=== PATIENT | male | born 1940 | race Caucasian/White ===

== ENCOUNTER 2018-02-22 10:16 | Emergency (ER) | payer MEDICARE ==
[2018-02-22] MEDS ORDERED: oxyCODONE-APAP 5-325MG 1 EACH TAB PO STA (10:54)
--- NOTE | 2018-02-22 11:45 | ED ---
General Adult HPI - General Chief complaint: Extremity Injury, Lower Stated complaint: Left Leg Pain Time Seen by Provider: 02/22/18 10:45 Source: patient, RN notes reviewed, old records reviewed Mode of arrival: wheelchair Limitations: no limitations - History of Present Illness Initial comments: This is a 77 male to the ER for evaluation today. Today this male is presenting in regards to evaluation of left leg pain left thigh pain left hip pain. Patient had a fall about 5 days ago now. Patient was seen in a different hospital for x-rays which were at the time negative. Patient states pain is steadily increased since fall bruising is to increased swelling so increased on his left hip and left thigh. Patient's ability to walk is severely diminished. He is taking Tylenol for pain which is not significantly helping at this time, he denies any neurological complaint no weakness or decreased sensation of left leg no loss of bowel or bladder - Related Data Allergies Allergy/AdvReac Type Severity Reaction Status Date / Time No Known Allergies Allergy Verified 02/22/18 10:24 Review of Systems ROS Statement: Those systems with pertinent positive or pertinent negative responses have been documented in the HPI. ROS Other: All systems not noted in ROS Statement are negative. Past Medical History Past Medical History: Deep Vein Thrombosis (DVT), Hypertension, Pulmonary Embolus (PE) Additional Past Medical History / Comment(s): AAA History of Any Multi-Drug Resistant Organisms: None Reported Additional Past Surgical History / Comment(s): kidney sx, AAA repair Past Psychological History: No Psychological Hx Reported Smoking Status: Former smoker Past Alcohol Use History: Daily Past Drug Use History: None Reported General Exam - General Exam Comments Initial Comments: Left leg shows significant bruising ecchymosis and hematoma to left thigh over the greater trochanter Limitations: no limitations General appearance: alert, in no apparent distress Head exam: Present: atraumatic, normocephalic, normal inspection Eye exam: Present: normal appearance, PERRL, EOMI. Absent: scleral icterus, conjunctival injection, periorbital swelling ENT exam: Present: normal exam, mucous membranes moist Neck exam: Present: normal inspection. Absent: tenderness, meningismus, lymphadenopathy Respiratory exam: Present: normal lung sounds bilaterally. Absent: respiratory distress, wheezes, rales, rhonchi, stridor Cardiovascular Exam: Present: regular rate, normal rhythm, normal heart sounds. Absent: systolic murmur, diastolic murmur, rubs, gallop, clicks GI/Abdominal exam: Present: soft, normal bowel sounds. Absent: distended, tenderness, guarding, rebound, rigid Extremities exam: Present: normal inspection, full ROM, normal capillary refill. Absent: tenderness, pedal edema, joint swelling, calf tenderness Back exam: Present: normal inspection Neurological exam: Present: alert, oriented X3, CN II-XII intact Psychiatric exam: Present: normal affect, normal mood Skin exam: Present: warm, dry, intact, normal color. Absent: rash Course Vital Signs 02/22/18 10:19 Temperature 97.9 F Pulse Rate 86 Respiratory 18 Rate Blood Pressure 128/100 O2 Sat by Pulse 99 Oximetry - Reevaluation(s) Reevaluation #1: 02/22/18 11:45 Patient is able to have adequate pain control currently, able to walk with cane Medical Decision Making - Medical Decision Making 77 male the ER with continued left hip pain, continues with left hip pain currently but patient has no acute injury noted. No acute injury found on CT. Patient can be discharged home into the supportive care - Radiology Data Radiology results: report reviewed (CT spine left hip left femur negative for traumatic injury), image reviewed Disposition Clinical Impression: Traumatic hematoma of left thigh Disposition: HOME SELF-CARE Condition: Good Instructions: Hematoma (ED) Is patient prescribed a controlled substance at d/c from ED?: No Referrals: Todd Mason MD [Primary Care Provider] - 1-2 days
--- NOTE | 2018-02-22 12:01 | CT ---
EXAMINATION TYPE: CT femur LT wo con DATE OF EXAM: 02/22/2018 COMPARISON: None. HISTORY: Fall 9 days ago, bruising and pain to Lt femur CT DLP: 712.2 mGycm Automated exposure control for dose reduction was used. FINDINGS: There is a direct inguinal hernia on the left containing fat only. There is uncomplicated d iverticulosis of the sigmoid colon. Visualized soft tissues are otherwise unremarkable. There are mild degenerative changes within the hips. No fracture or other acute osseous lesion is see n the knee joint is reasonably well-maintained. IMPRESSION: 1. NO ACUTE OSSEOUS LESION. 2. DIRECT INGUINAL HERNIA ON THE LEFT CONTAINING FAT ONLY. 3. UNCOMPLICATED DIVERTICULOSIS OF THE SIGMOID COLON.
--- NOTE | 2018-02-22 12:05 | CT ---
EXAMINATION TYPE: CT lumbar spine wo con DATE OF EXAM: 02/22/2018 11:54 AM COMPARISON: None. HISTORY: Fall [address] DLP: 598.8 mGycm Automated exposure control for dose reduction was used. Unenhanced CT of the lumbar spine was performed. Bone and soft tissue window settings are submitted as well as coronal and sagittal reconstructions. FINDINGS: There are emphysematous changes within the lungs. No pleural fluid is seen. There is aneurysmal dilatation of the distal thoracic aorta with maximal transverse dimension of 4.7 cm. There are atheromatous calcifications throughout the visualized portions of aorta. There is a bilateral lysis at L5 with a grade 2 spondylolisthesis of L5 on S1. Alignment is otherwise maintained. No fractures are seen. There is a mild S-shaped scoliosis convex to the right at the tho racic lumbar junction and to the left in the lumbar region. There is a pseudodisc at L5-S1. There is no other significant compressive discopathy. Intervertebral foramina are well maintained. There is only mild facet arthropathy throughout the lumbar spine. IMPRESSION: 1. ANEURYSMAL DILATATION OF THE DESCENDING THORACIC AORTA. 2. 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 3. NO SIGNIFICANT COMPRESSIVE DISCOPATHY OR NEURAL COMPRESSION. 4. MILD FACET ARTHROPATHY.
[2018-02-22 12:43] VITALS: BP 138/70; PULSE 90; RESP 16; TEMP 97.8
== END 2018-02-22 12:42 | disposition home or self-care (01) ==
LOC: EC 10:16
DX: S70.12XA Contusion of left thigh, initial encounter (principal); M25.552 Pain in left hip; Z87.891 Personal history of nicotine dependence; Z86.711 Personal history of pulmonary embolism; Z86.718 Personal history of other venous thrombosis and embolism; W18.39XA Other fall on same level, initial encounter
CPT/HCPCS: 72131; 99284